=== PATIENT | female | born 1990 | race African-American/Black ===

== ENCOUNTER 2022-04-18 19:45 | Inpatient (IN) | payer OTHER ==
[2022-04-18 21:10] VITALS: BMI 33.6
[2022-04-18 21:26] LABS: BASO % 0.2 % (0-2.0); EOS % 0.2 % (0-4.5); HEMATOCRIT 35.2 % (32.4-45.2); HEMOGLOBIN 11.7 GM/dL (10.7-15.3); LYMPH % 19.9 % (8-40); MCH 26.2 pg (25.7-33.7); MCHC 33.2 g/dl (32.0-36.0); MEAN CELL VOLUME 78.9 fl (80-96); MEAN PLT VOLUME 9.1 fl (7.5-11.1); MONO % 5.9 % (3.8-10.2); NEUT % 73.8 % (42.8-82.8); PLATELET COUNT 287 10^3/uL (134-434); RBC 4.46 M/mm3 (3.60-5.2); RDW 14.4 % (11.6-15.6); WHITE BLOOD COUNT 9.6 K/mm3 (4.0-10.0)
[2022-04-18 21:33] LABS: INR 0.95 (0.83-1.09); PROTHROMBIN TIME (PATIENT) 10.9 SEC (9.7-13.0)
[2022-04-18 21:35] LABS: ACTIVATED PTT 27.4 SECONDS (25.2-36.5)
[2022-04-18 21:45] LABS: CALCIUM 8.7 mg/dL (8.5-10.1)
[2022-04-18 21:46] LABS: BLOOD UREA NITROGEN 9.8 mg/dL (7-18)
[2022-04-18 21:49] LABS: CREATININE 0.8 mg/dL (0.55-1.3)
[2022-04-18] MEDS: LACTATED RINGERS SOLUTION 1,000 ML IV SCH (22:00)
[2022-04-19] MEDS ORDERED: OXYTOCIN 30 UNITS in 0.9% NS 30 UNIT/500 ML INFUS.BAG IVPB SCH (05:20)
[2022-04-19] MEDS ORDERED: OXYTOCIN 30 UNITS in 0.9% NS 30 UNIT/500 ML INFUS.BAG IVPB ONE (05:24)
[2022-04-19] MEDS: LACTATED RINGERS SOLUTION 1,000 ML IV SCH (05:30)
[2022-04-19] MEDS ORDERED: FENTANYL/BUPIVACAINE/NS/PF - PCEA - 50 ML DISP.SYRIN EP ONE ×3 (08:56→18:57)
[2022-04-19] MEDS ORDERED: NALOXONE HCL 0.4 MG/ML VIAL IVPUSH PRN (09:00)
[2022-04-19] MEDS ORDERED: BUPIVACAINE HCL/PF 0.25% (2.5MG/ML) 10 ML VIAL ONE ×4 (09:01→18:50)
[2022-04-19] MEDS: FENTANYL/BUPIVACAINE/NS/PF - PCEA - 50 ML DISP.SYRIN EP SCH ×2 (09:20→19:03)
[2022-04-19 13:51] LABS: POC NITRAZINE NEG
[2022-04-19] MEDS ORDERED: CITRIC ACID/SODIUM CITRATE 30 ML UNIT-DOSE CUP PO ONE (20:30)
[2022-04-19] MEDS ORDERED: ELECTROLYTE-148 SOLN 1,000 ML IV SCH ×2 (20:30→21:01)
[2022-04-19] MEDS ORDERED: LIDO 2%/EPI 1:200000 PRESRVFRE (20 ML SDVIAL) ONE (21:01)
[2022-04-19] MEDS: OXYTOCIN 20 UNITS in 0.9% NS 20 UNIT/1,000 ML INFUS.BAG IV SCH (21:48)
[2022-04-19] MEDS ORDERED: ACETAMINOPHEN 325 MG TABLET (FP) PO PRN (22:22)
[2022-04-19] MEDS ORDERED: ONDANSETRON 4 MG/2 ML VIAL IVPB PRN (22:22)
[2022-04-19] MEDS ORDERED: IBUPROFEN 800 MG/8 ML IJ IVPB PRN (22:22)
[2022-04-19] MEDS ORDERED: oxyCODONE HCL 5 MG TABLET PO PRN (22:22)
[2022-04-20] MEDS: ACETAMINOPHEN 1000 MG/100 ML BAG IVPB PRN ×2 (01:05→08:59)
[2022-04-20] MEDS: OXYTOCIN 20 UNITS in 0.9% NS 20 UNIT/1,000 ML INFUS.BAG IV SCH (01:05)
[2022-04-20] MEDS: LACTATED RINGERS SOLUTION 1,000 ML IV SCH (01:41)
[2022-04-20] MEDS: CEFAZOLIN SODIUM 2 GM in DEXTROSE 5%-WATER 100 ML IVPB SCH ×2 (02:34→09:59)
[2022-04-20 07:38] LABS: BASO % 0.1 % (0-2.0); HEMATOCRIT 28.6 % (32.4-45.2); HEMOGLOBIN 9.1 GM/dL (10.7-15.3); LYMPH % 6.9 % (8-40); MCH 25.2 pg (25.7-33.7); MEAN CELL VOLUME 78.7 fl (80-96); MEAN PLT VOLUME 8.8 fl (7.5-11.1); MONO % 4.2 % (3.8-10.2); NEUT % 88.8 % (42.8-82.8); PLATELET COUNT 253 10^3/uL (134-434); RBC 3.64 M/mm3 (3.60-5.2); RDW 14.4 % (11.6-15.6); WHITE BLOOD COUNT 15.1 K/mm3 (4.0-10.0)
[2022-04-20] MEDS ORDERED: diphenhydrAMINE HCL 25 MG CAPSULE (FP) PO ONE (09:30)
[2022-04-20] MEDS ORDERED: diphenhydrAMINE HCL 50 MG CAPSULE PO ONE (09:30)
[2022-04-20] MEDS: IBUPROFEN 600 MG TABLET (FP) PO PRN ×3 (13:18→20:58)
[2022-04-20] MEDS: SIMETHICONE 80 MG TAB.CHEW (FP) PO PRN ×2 (16:18→20:58)
[2022-04-20 20:54] VITALS: RESP 18
[2022-04-20] MEDS: SENNOSIDES/DOCUSATE COMBO (SENNA PLUS) TABLET (UD) PO PRN (20:58)
[2022-04-20] MEDS ORDERED: BISACODYL 10 MG SUPP.RECT RC PRN (22:22)
[2022-04-21] MEDS: SIMETHICONE 80 MG TAB.CHEW (FP) PO PRN ×3 (04:34→21:12)
[2022-04-21] MEDS: IBUPROFEN 600 MG TABLET (FP) PO PRN ×3 (04:34→21:12)
[2022-04-21] MEDS: OXYTOCIN 20 UNITS in 0.9% NS 20 UNIT/1,000 ML INFUS.BAG IV SCH (19:12)
[2022-04-21] MEDS: SENNOSIDES/DOCUSATE COMBO (SENNA PLUS) TABLET (UD) PO PRN (21:12)
[2022-04-22] MEDS: IBUPROFEN 600 MG TABLET (FP) PO PRN (08:11)
[2022-04-22 10:13] VITALS: BP 106/72; PULSE 64; TEMP 97.5
== END 2022-04-22 12:30 | disposition home or self-care (01) | DRG 788 ==
LOC: JDEL 19:45 → JLDR 20:30 → J3W 04-20 00:33
PROVIDERS: ADMIT Specialist; ATTEND Specialist
PROC: 10D00Z1 Extraction of Products of Conception, Low, Open Approach (ICD-10-PCS; principal; 2022-04-19)
DX: O48.0 Post-term pregnancy (principal); O66.40 Failed trial of labor, unspecified; O62.0 Primary inadequate contractions; O64.8XX0 Obstructed labor due to other malposition and malpresentation, not applicable or unspecified; O34.13 Maternal care for benign tumor of corpus uteri, third trimester; D25.0 Submucous leiomyoma of uterus; O99.892 Other specified diseases and conditions complicating childbirth; N73.6 Female pelvic peritoneal adhesions (postinfective); Z3A.40 40 weeks gestation of pregnancy; Z37.0 Single live birth
CPT/HCPCS: 36415; 80048; 83986-QW; 85025; 85610; 85730; 86780; 86850; 86900; 86901; 88307-TC; C9803-CS; U0003; U0005